=== PATIENT | male | born 1950 | race Caucasian/White ===

== ENCOUNTER 2025-04-10 12:43 | Day surgery (SDC) | payer MEDICARE, OTHER, SELFPAY ==
[2025-04-08 14:22] VITALS: BMI 33.0
[2025-04-10 13:11] VITALS: BP 156/87; PULSE 54; RESP 17; TEMP 36.4; O2SAT 97
[2025-04-10] MEDS: LACTATED RINGERS 1000ML 1,000 ML 50 ML IV (13:18)
--- NOTE | 2025-04-10 13:29 | EXP.ANES.CKL ---
[facility] Disclaimer: The information contained in this section may have been updated after the patient was seen, as this information can be updated by other users. Medical History Vitamin B12 deficiency Type II diabetes mellitus Afib Sleep apnea Depression Hyperlipidemia Hypertension Renal disease Surgical History H/O foot surgery H/O umbilical hernia repair H/O shoulder surgery Family History Brother Cancer of kidney Prostate cancer Social History Smoking Status: Former smoker alcohol intake: never substance use type: denies use current occupational status: retired Travel in the last 8 weeks?: None [facility] Anesthesia Checklist Patient Identification Patient Identification: Arm Band and Verbal (Name & ) Structural Data Admitted From: Home Planned Operative Procedure/s: EGD and colonoscopy Verified Documents: Surgical Consent NPO Status Verified Time NPO: 00:00 Chart Verification Results Verified: None Additional verifications Fingerstick Blood Glucose: 108 Anesthesia Reactions: No Airway Assessment Mallampati Score:: Class II C-Spine Mobility Assessed: Yes TMJ Mobility Assessed: Yes Dentition: Edentulous Neurological Assessment Level of Consciousness: Awake, Alert and Appropriate Hx Seizures: Yes Numbness or tingling in extremities: No Anesthesia Plan Anesthesia Risk discussed: Yes Anesthesia Plan: Verified ASA Class: III Anesthesia Type: MAC
[2025-04-10 13:39] LABS: POC Glucose,Bedside 108 (70-110)
--- NOTE | 2025-04-10 15:55 | EXP.HP ---
History of Present Illness *Admission Date: 04/10/25 *Reason for visit:: Dysphagia/personal history of adenomatous colon polyps *History of present illness: Mr. Macdonald is a 75-year-old gentleman who is an established patient with [facility] [place]. He does have a personal history of adenomatous colon polyps and was having colonoscopy every 3 years. He has had 7 prior colonoscopies. His colonoscopy in November 2011 revealed 2 polyps (tubular adenomas x 2). His colonoscopy and December 2016 revealed 4 polyps (tubular adenomas x 3/small serrated adenoma x 1) which were removed. His last colonoscopy in December 2019 revealed a single polyp (small serrated adenoma) which was removed. He was given 5-year surveillance interval. The patient has noted the onset of dysphagia especially with bread and milk together over the last 3 or 4 years. This does hanging up in the lower retrosternal region and he will sometimes have pain with this. He will either have to regurgitate the food bolus or eventually this will go down. He reports no increased heartburn or reflux. He has had no weight loss or abdominal pain. He reports no bloating, belching but does have some gassiness. He reports no family history of colon cancer. He has had no hematochezia, bright red blood per rectum or melena. [facility] Disclaimer: The information contained in this section may have been updated after the patient was seen, as this information can be updated by other users. Medical History Vitamin B12 deficiency Type II diabetes mellitus Afib Sleep apnea Depression Hyperlipidemia Hypertension Renal disease Surgical History H/O foot surgery H/O umbilical hernia repair H/O shoulder surgery Family History Brother Cancer of kidney Prostate cancer Social History (Updated 04/10/25 @ 13:32 by Mychal Sun CRNA) Smoking Status: Former smoker alcohol intake: never substance use type: denies use current occupational status: retired Travel in the last 8 weeks?: None Have you lived/traveled outside US in past 30 days?: No Contact w/someone who lives/traveled outside US past 30 days?: No Exposure to someone with infectious disease in past 14 days?: No Do you have a fever (greater than 100.4 F or 38 C)?: No Have you tested positive for COVID-19?: No Exposed to someone with COVID-19 in past 14 days?: No Do you have a sore throat?: No Do you have a cough?: No Do you have any weakness?: No Do you have any diarrhea?: No Are you experiencing any unusual bleeding?: No Do you have any muscle aches/pain?: No Do you have any abdominal pain?: No Are you experiencing loss of taste or smell?: No Other Medical History Have you received the Pneumonia Vaccine: Yes Review of Systems Review of Systems Review of systems (narrative): Negative *Cardiovascular Comments: Negative *Gastrointestinal Comments: Negative *Genitourinary Comments: Negative *Musculoskeletal Comments: Negative *Neurologic Comments: Negative Meds Home Medications and Allergies Home Medications ?Medication ?Instructions ?Recorded ?Confirmed ?Type apixaban 5 mg tablet (Eliquis) 5 mg PO BID 02/11/25 04/10/25 History atorvastatin 20 mg tablet 20 mg PO DAILY 02/11/25 04/10/25 History celecoxib 200 mg capsule 200 mg PO .everyotherday 02/11/25 04/10/25 History donepezil 5 mg tablet 5 mg PO DAILY 02/11/25 04/10/25 History escitalopram oxalate 20 mg tablet 20 mg PO DAILY 02/11/25 04/10/25 History fenofibrate nanocrystallized 145 145 mg PO ONCE 02/11/25 04/10/25 History mg tablet insulin degludec 100 unit/mL (3 14 unit SQ ONCE 02/11/25 04/10/25 History mL) subcutaneous pen (Tresiba FlexTouch U-100 insulin) losartan 25 mg tablet 25 mg PO DAILY 02/11/25 04/10/25 History metoprolol tartrate 50 mg tablet 50 mg PO BID 02/11/25 04/10/25 History multivitamin 1 tab PO DAILY 02/11/25 04/10/25 History semaglutide 14 mg tablet (Rybelsus) 14 mg PO ONCE 02/11/25 04/10/25 History tizanidine 2 mg tablet 2 mg PO ONCE 02/11/25 04/10/25 History New Prescriptions to Start Prescriptions: Allergies Allergy/AdvReac Type Severity Reaction Status Date / Time No Known Allergies Allergy Verified 04/10/25 13:10 Exam Data for Last 24 hours Vital signs and Labs for Last 24 Hours: Temp Pulse Resp BP Pulse Ox O2 Del Method 97.5 F L 54 L 17 156/87 H 97 Room Air 04/10/25 13:11 04/10/25 13:11 04/10/25 13:11 04/10/25 13:11 04/10/25 13:11 04/10/25 13:11 Laboratory Results - last 24 hr 04/10/25 13:09: POC Glucose 108 I & O for Last 24 hours: Intake & Output 04/07/25 04/08/25 04/09/25 04/10/25 23:59 23:59 23:59 23:59 Weight 230 lb *Routine HEENT Exam Head: Present normocephalic Eye: Present EOMI and PERRL ENT: Present mucous membranes moist *Routine Neck Exam Neck: Present supple *Routine Respiratory Exam Respiratory: Present CTA bilaterally *Routine Cardiovascular Exam Cardiovascular: Present RRR *Routine Abdominal Exam Abdominal: Present soft and normoactive bowel sounds; Absent tenderness *Routine Rectal Exam Rectal:: deferred *Routine Genitalia Exam Genitalia:: deferred *Routine Extremities Exam Extremities: Absent cyanosis, clubbing or edema *Routine Skin Exam Skin: Present warm; Absent rash *Routine Neurological Exam Neurological: Present alert and oriented X3 Assessment and Plan *Assessment and plan (1) Dysphagia: Status: Acute Category: Medical Code(s): R13.10 - Dysphagia, unspecified (2) Personal history of adenomatous and serrated colon polyps: Status: Acute Category: Medical Code(s): Z86.0101 - Personal history of adenomatous and serrated colon polyps Plan A/P: 1. Dysphagia for upper endoscopy and personal history of adenomatous colon polyps for colonoscopy (surveillance) is the preprocedural diagnosis. The patient will be anesthetized/sedated using MAC sedation. The patient has been seen and examined. Cardiac and lung assessment prior to the examination is stable. Proceed with planned diagnostic EGD and surveillance colonoscopy.
--- NOTE | 2025-04-10 15:57 | P.PCN_ITS ---
[facility] Procedure Note Date: 04/10/25 Time: 16:13 Procedure Note:: Upper Endoscopy Procedure Report: Esophagogastroduodenoscopy with TTS balloon dilation Endoscopost: Dioni Guerrier II, MD Referring Physician: Ranjan Jade MD Date of Procedure: April 10, 2025 Equipment: Olympus GIF 190 standard upper endoscope Sedation: MAC sedation Indications: Mr. Macdonald is a 75-year-old gentleman who is here for diagnostic/therapeutic upper endoscopy secondary to dysphagia and surveillance c olonoscopy secondary to personal history of adenomatous polyps for colonoscopy. He is an established patient with [facility] in [place]. He does have a personal history of adenomatous colon polyps and was having colonoscopy every 3 years. He has had 7 prior colonoscopies. His colonoscopy in November 2011 revealed 2 polyps (tubular adenomas x 2). His colonoscopy and December 2016 revealed 4 polyps (tubular adenomas x 3/small serrated adenoma x 1) which were removed. His last colonoscopy in December 2019 revealed a single polyp (small serrated adenoma) which was removed. He was given 5-year surveillance interval. The patient has noted the onset of dysphagia especially with bread and milk together over the last 3 or 4 years. This does hanging up in the lower retrosternal region and he will sometimes have pain with this. He will either have to regurgitate the food bolus or eventually this will go down. He also has noticed some left-sided abdominal pain and discomfort. He reports no increased heartburn or reflux. He has had no weight loss. He reports no bloating, belching but does have some gassiness. He reports no family history of colon cancer. He has had no hematochezia, bright red blood per rectum or melena. Procedure: Prior to the procedure, a history and physical exam was performed, and patient's medications and allergies were reviewed. The risks, benefits and alternatives of the sedation and procedure were discussed with the patient. All questions were answered and informed consent was obtained. The patient was brought to the procedure room. Patient identification and proposed procedure were verified by the physician and the nurse. The patient was placed in a left lateral decubitus position and the scope was passed under direct vision. Throughout the procedure, the patient's blood pressure, pulse, and oxygen saturations were monitored continuously. The upper GI endoscopy was accomplished without difficulty. The patient tolerated the procedure well. Findings: The scope was passed directly into the upper esophagus and advanced to the third portion of the duodenum. The post bulbar duodenum and duodenal bulb were normal with normal mucosa and conniventes. The scope was withdrawn through a normal duodenal bulb and pylorus into the stomach. There was very minimal linear reactive gastropathy of the antrum. The body and fundus of the stomach were normal. Upon retroflexion there was no hiatal hernia. The scope was then withdrawn into the esophagus. There was no evidence of reflux esophagitis, Zurita's or Schatzki's ring. There were strong tertiary contractions and evidence of moderate esophageal dysmotility. The entire esophagus was dilated to 60 Wolof/20 mm with a TTS hydrostatic balloon. There was some resistance at the cricopharyngeus. The remainder of the esophageal mucosa was normal. Impression: 1. Cricopharyngeal spasm 2. Nonerosive GERD with moderate esophageal dysmotility Plan: I do feel that his swallowing difficulty is related to the esophageal dysmotility. We will discuss additional treatment options. I will discuss the findings with the patient and family. I will proceed with surveillance colonoscopy.
--- NOTE | 2025-04-10 16:07 | P.PCN_ITS ---
[facility] Procedure Note Date: 04/10/25 Time: 16:26 Procedure Note:: Colonoscopy Procedure Report: Colonoscopy with cold snare polypectomy Endoscopist: Dioni Guerrier II, MD Referring physician: Ranjan Jade MD Date of Procedure: April 10, 2025 Equipment: Olympus 190 variable stiffness pediatric colonoscope Sedation: MAC sedation Indication: Mr. Macdonald is a 75-year-old gentleman who is here for diagnostic/therapeutic upper endoscopy secondary to dysphagia and surveillance colonoscopy secondary to personal history of adenomatous polyps for colonoscopy. He is an established patient with [facility] in [place]. He does have a personal history of adenomatous colon polyps and was having colonoscopy every 3 years. He has had 7 prior colonoscopies. His colonoscopy in November 2011 revealed 2 polyps (tubular adenomas x 2). His colonoscopy and December 2016 revealed 4 polyps (tubular adenomas x 3/small serrated adenoma x 1) which were removed. His last colonoscopy in December 2019 revealed a single polyp (small serrated adenoma) which was removed. He was given 5-year surveillance interval. The patient has noted the onset of dysphagia especially with bread and milk together over the last 3 or 4 years. This does hanging up in the lower retrosternal region and he will sometimes have pain with this. He will either have to regurgitate the food bolus or eventually this will go down. He also has noticed some left-sided abdominal pain and discomfort. He reports no increased heartburn or reflux. He has had no weight loss. He reports no bloating, belching but does have some gassiness. He reports no family history of colon cancer. He has had no hematochezia, bright red blood per rectum or melena. Procedure: Prior to the procedure, a history and physical exam was performed, and patient's medications and allergies were reviewed. The risks, benefits and alternatives of the sedation and procedure were discussed with the patient. All questions were answered and informed consent was obtained. The patient was brought to the procedure room. Patient identification and proposed procedure were verified by the physician and the nurse. The patient was placed in a left lateral decubitus position and the scope was passed under direct vision. Throughout the proced ure, the patient's blood pressure, pulse, and oxygen saturations were monitored continuously. The colonoscopy was accomplished without difficulty. The patient tolerated the procedure well. Findings: On digital rectal examination there was normal rectal tone. There were no external hemorrhoids. The colonoscope was introduced through the anal canal to the rectum and advanced to the cecum. The ileocecal valve and appendiceal orifice were identified. The scope was advanced a short distance into the ileum which appeared grossly normal. The scope was then withdrawn into the colon. There were 4 polyps (ascending x 1 (4 mm), transverse x 1 (5 mm), descending x 1 (4 mm) and sigmoid x 1 (3 mm)). These were all removed via cold snare polypectomy. The cecum, ascending and transverse colon and mucosa were grossly normal. There were scattered diverticuli throughout the descending and sigmoid colon (LEFT colon). The rectum itself was normal. Upon retroflexion within the rectum there were grade 2 internal hemorrhoids. The preparation was good throughout with [place] Preparation Score of 8 out of 9. The cecal time was 14 minutes. Impression: 1. Diminutive colonic polyps x 4 2. Left-sided diverticulosis 3. Grade 2 internal hemorrhoids Plan: I will follow-up the polyp histology. Based upon the patient's age and lack of any advanced polyps, he will not require further surveillance colonoscopy. I would encourage a fiber bowel regimen on a regular and daily basis.
[2025-04-10 16:31] VITALS: BP 111/58; PULSE 66; RESP 17; O2SAT 91
[2025-04-10 16:41] VITALS: BP 115/61; PULSE 63; RESP 17; O2SAT 95
[2025-04-10 16:51] VITALS: BP 122/57; PULSE 65; RESP 17; O2SAT 96
[2025-04-10 16:56] VITALS: BP 128/90; PULSE 65; RESP 17; O2SAT 97
== END 2025-04-10 17:20 | disposition home or self-care (01) ==
PROVIDERS: PCP Internal Medicine; Visit Provider Internal Medicine Gastroenterology
PROC: 0DJ08ZZ Inspection of Upper Intestinal Tract, Via Natural or Artificial Opening Endoscopic (ICD-10-PCS; CPT 45378; principal; 2025-04-10 14:30)
DX: Z12.11 Encounter for screening for malignant neoplasm of colon (principal); R13.10 Dysphagia, unspecified; Z86.0101 Personal history of adenomatous and serrated colon polyps; K31.9 Disease of stomach and duodenum, unspecified; J39.2 Other diseases of pharynx; K21.9 Gastro-esophageal reflux disease without esophagitis; K22.4 Dyskinesia of esophagus; D12.2 Benign neoplasm of ascending colon; D12.4 Benign neoplasm of descending colon; D12.5 Benign neoplasm of sigmoid colon; D12.3 Benign neoplasm of transverse colon; K57.30 Diverticulosis of large intestine without perforation or abscess without bleeding; K64.1 Second degree hemorrhoids; Z87.891 Personal history of nicotine dependence
CPT/HCPCS: 43249; 45385; 82962; C1726; J7120